=== PATIENT | female | born 1950 | race Caucasian/White ===

== ENCOUNTER → 2017-05-03 | Outpatient (CLI) | payer MEDICARE, MEDICAID | LOC: RAD 10:52 | PROVIDERS: ATTEND Internal Medicine Interventional Cardiology | DX: I25.10 Atherosclerotic heart disease of native coronary artery without angina pectoris (principal); R06.02 Shortness of breath; Z72.0 Tobacco use ==

== ENCOUNTER → 2017-06-06 | Outpatient (CLI) | payer MEDICARE, MEDICAID ==
[2017-06-06 13:08] LABS: BASOPHILS % (AUTO) 1 % (0-10); EOSINOPHILS # (AUTO) 0.3 10^3/uL (0.0-0.3); EOSINOPHILS % (AUTO) 4 % (0-10); LYMPHOCYTES # (AUTO) 1.4 X 10^3 (1.0-4.0); LYMPHOCYTES % (AUTO) 22 % (12-44); MEAN CORPUSCULAR HEMOGLOBIN 34 PG (25-34); MEAN CORPUSCULAR HGB CONC 35 G/DL (32-36); MEAN CORPUSCULAR VOLUME 97 FL (80-99); MEAN PLATELET VOLUME 7.9 FL (7.4-10.4); MONOCYTES # (AUTO) 0.5 X 10^3 (0.0-1.0); MONOCYTES % (AUTO) 7 % (0-12); NEUTROPHILS # (AUTO) 4.3 X 10^3 (1.8-7.8); NEUTROPHILS % (AUTO) 67 % (42-75); PLATELET COUNT 216 10^3/uL (130-400); RED BLOOD COUNT 3.68 10^6/uL (4.35-5.85); RED CELL DISTRIBUTION WIDTH 14.2 % (10.0-14.5); WHITE BLOOD COUNT 6.4 10^3/uL (4.3-11.0)
[2017-06-06 13:24] LABS: BILIRUBIN,URINE NEGATIVE (NEGATIVE); KETONES,URINE NEGATIVE (NEGATIVE); LEUKOCYTE ESTERASE ,URINE 3+ (NEGATIVE); NITRITE,URINE NEGATIVE (NEGATIVE); PH,URINE 5 (5-9); PROTEIN,URINE NEGATIVE (NEGATIVE); UROBILINOGEN,URINE NORMAL (NORMAL)
[2017-06-06 13:26] LABS: ANION GAP 9 MMOL/L (5-14); BLOOD UREA NITROGEN 21 MG/DL (7-18); BUN/CREATININE RATIO 23; CALCIUM 9.3 MG/DL (8.5-10.1); CARBON DIOXIDE 25 MMOL/L (21-32); CHLORIDE 97 MMOL/L (98-107); CREATININE SERUM 0.92 MG/DL (0.60-1.30); GFR ESTIMATED > 60; GLUCOSE 137 MG/DL (70-105); PHOSPHORUS 4.2 MG/DL (2.3-4.7); POTASSIUM 5.1 MMOL/L (3.6-5.0); SODIUM 131 MMOL/L (135-145)
[2017-06-06 13:29] LABS: BAND NEUTROPHILS 5 %; BASOPHILS % (MANUAL) 0 %; EOSINOPHILS % (MANUAL) 5 %; LYMPHOCYTES % (MANUAL) 30 %; NEUTROPHILS % (MANUAL) 55 %
[2017-06-06 13:30] LABS: ANISOCYTOSIS SLIGHT
[2017-06-06 13:36] LABS: HYALINE CASTS, URINE RARE /LPF
[2017-06-06 13:44] LABS: PROTEIN/CREATININE RATIO 0.13
== END ==
LOC: LAB 12:48
PROVIDERS: ATTEND Internal Medicine Interventional Cardiology
DX: E87.1 Hypo-osmolality and hyponatremia (principal); I25.10 Atherosclerotic heart disease of native coronary artery without angina pectoris; R06.02 Shortness of breath
CPT/HCPCS: 36415; 80069; 81000; 82570; 84156; 85007; 85027; 87088; 87186

== ENCOUNTER → 2017-06-21 | Outpatient (CLI) | payer MEDICARE, MEDICAID ==
[2017-06-21 15:43] LABS: ALBUMIN 4.1 GM/DL (3.2-4.5); ANION GAP 14 MMOL/L (5-14); BLOOD UREA NITROGEN 20 MG/DL (7-18); BUN/CREATININE RATIO 24; CALCIUM 9.5 MG/DL (8.5-10.1); CARBON DIOXIDE 20 MMOL/L (21-32); CHLORIDE 98 MMOL/L (98-107); CREATININE SERUM 0.84 MG/DL (0.60-1.30); GFR ESTIMATED > 60; GLUCOSE 161 MG/DL (70-105); PHOSPHORUS 3.9 MG/DL (2.3-4.7); POTASSIUM 4.4 MMOL/L (3.6-5.0); SODIUM 132 MMOL/L (135-145)
[2017-06-22 09:15] LABS: CALCIUM PARA THYROID HORMONE 9.4 mg/dL (8.5-10.5)
== END ==
LOC: LAB 14:45
PROVIDERS: ATTEND Internal Medicine Nephrology
DX: D64.89 Other specified anemias (principal); E87.5 Hyperkalemia; N39.0 Urinary tract infection, site not specified
CPT/HCPCS: 36415; 80069; 82088; 82306; 82533; 82570; 82728; 83540; 83550; 83930; 83935; 83970; 84300; 84443

== ENCOUNTER → 2017-07-06 | Outpatient (CLI) | payer MEDICARE, MEDICAID ==
[~2017-07-06] MED LIST: CATHETER FLUSH 10 ML SYR IV PRN; REGADENOSON 0.4 MG/5 ML SYR (LEXISCAN) IV ONE
[2017-07-06 09:59] VITALS: BP 131/64
[2017-07-06 10:12] VITALS: BP 157/83
--- NOTE | 2017-07-07 22:45 | STRESS TEST ---
DATE OF SERVICE: 07/06/2017 PHARMACOLOGICAL NUCLEAR STRESS TEST ATTENDING PHYSICIAN: Dr. Charisse Paez. PRIMARY PHYSICIAN: Dr. Cash Ulrich. FAMILY PHYSICIAN: Dr. Mariah Kingsley. DIAGNOSES: Coronary artery disease, shortness of breath, tobacco user. PROCEDURE DETAILS: The patient was brought to the stress lab after informed consent was taken. Lexiscan stress test was performed according to the protocol. A 0.4 mg of Lexiscan was given IV. Low-grade exercise was performed. Baseline ECG showed sinus rhythm at 66 BPM. Blood pressure was 157/83 mmHg. Maximum heart rate was 88 BPM and blood pressure was 157/83 mmHg. There were no [address]-T wave abnormalities noted during Lexiscan infusion. There was no chest pain and arrhythmias noted. Stress test was stopped secondary to completion of protocol. Review of the myocardial perfusion imaging was performed. 10.24 mCi of Myoview were given for stress images and 29.8 mCi of Myoview were given for stress images. TID was 1.13. Ejection fraction was 81%. Normal perfusion in both stress and rest. Normal wall motion. SSS 1, SRS zero, SDS 1. IMPRESSION AND CONCLUSION: 1. Pharmacological nuclear stress test was negative for ischemia. 2. Normal myocardial perfusion imaging on stress and rest. 3. Normal LV function. Job ID: [id number] DocumentID: [id number] Dictated Date: 07/06/2017 12:23:54 Cso Date: 07/06/2017 19:32:14 Dictated By: SATNAM PAEZ MD
== END ==
LOC: CARD 08:19
PROVIDERS: ATTEND Internal Medicine Interventional Cardiology
DX: I25.10 Atherosclerotic heart disease of native coronary artery without angina pectoris (principal); R06.02 Shortness of breath; Z72.0 Tobacco use
CPT/HCPCS: 78452; 93017

== ENCOUNTER → 2017-08-01 | Outpatient (CLI) | payer MEDICARE, MEDICAID ==
[2017-08-01 15:27] LABS: BASOPHILS % (AUTO) 0 % (0-10); EOSINOPHILS # (AUTO) 0.3 10^3/uL (0.0-0.3); EOSINOPHILS % (AUTO) 4 % (0-10); LYMPHOCYTES # (AUTO) 1.5 X 10^3 (1.0-4.0); LYMPHOCYTES % (AUTO) 23 % (12-44); MEAN CORPUSCULAR HEMOGLOBIN 34 PG (25-34); MEAN CORPUSCULAR HGB CONC 35 G/DL (32-36); MEAN CORPUSCULAR VOLUME 97 FL (80-99); MEAN PLATELET VOLUME 8.1 FL (7.4-10.4); MONOCYTES # (AUTO) 0.4 X 10^3 (0.0-1.0); MONOCYTES % (AUTO) 7 % (0-12); NEUTROPHILS # (AUTO) 4.4 X 10^3 (1.8-7.8); NEUTROPHILS % (AUTO) 66 % (42-75); PLATELET COUNT 236 10^3/uL (130-400); RED BLOOD COUNT 3.87 10^6/uL (4.35-5.85); RED CELL DISTRIBUTION WIDTH 14.2 % (10.0-14.5); WHITE BLOOD COUNT 6.6 10^3/uL (4.3-11.0)
[2017-08-01 15:33] LABS: BILIRUBIN,URINE NEGATIVE (NEGATIVE); KETONES,URINE NEGATIVE (NEGATIVE); LEUKOCYTE ESTERASE ,URINE 3+ (NEGATIVE); NITRITE,URINE NEGATIVE (NEGATIVE); PH,URINE 5 (5-9); PROTEIN,URINE 2+ (NEGATIVE); UROBILINOGEN,URINE NORMAL (NORMAL)
[2017-08-01 15:41] LABS: SQUAMOUS EPITHELIAL CELL,UR >50 /HPF; TRICHOMONAS,URINE FEW /HPF; WBC,URINE 25-50 /HPF
[2017-08-01 15:45] LABS: ALBUMIN 4.1 GM/DL (3.2-4.5); ANION GAP 11 MMOL/L (5-14); BLOOD UREA NITROGEN 18 MG/DL (7-18); BUN/CREATININE RATIO 23; CALCIUM 9.4 MG/DL (8.5-10.1); CARBON DIOXIDE 23 MMOL/L (21-32); CHLORIDE 93 MMOL/L (98-107); GFR ESTIMATED > 60; GLUCOSE 172 MG/DL (70-105); MAGNESIUM 1.8 MG/DL (1.8-2.4); PHOSPHORUS 3.4 MG/DL (2.3-4.7); SODIUM 127 MMOL/L (135-145); URIC ACID 8.5 MG/DL (2.6-7.2)
[2017-08-01 15:50] LABS: PROTEIN/CREATININE RATIO 0.27
[2017-08-02 08:07] LABS: FOLIC ACID 2.6 ng/mL (1.5-24.0)
== END ==
LOC: LAB 14:45
PROVIDERS: ATTEND Internal Medicine Nephrology
DX: E87.5 Hyperkalemia (principal); D64.89 Other specified anemias; N39.0 Urinary tract infection, site not specified
CPT/HCPCS: 36415; 80069; 81000; 82570; 82607; 82746; 83735; 83930; 83935; 84156; 84550; 85025; 87088; 87186

== ENCOUNTER → 2017-08-07 | Outpatient (CLI) | payer MEDICARE, MEDICAID ==
[2017-08-07 15:33] LABS: ANION GAP 9 MMOL/L (5-14); BLOOD UREA NITROGEN 12 MG/DL (7-18); BUN/CREATININE RATIO 16; CALCIUM 9.3 MG/DL (8.5-10.1); CARBON DIOXIDE 26 MMOL/L (21-32); CHLORIDE 93 MMOL/L (98-107); CREATININE SERUM 0.75 MG/DL (0.60-1.30); GFR ESTIMATED > 60; GLUCOSE 159 MG/DL (70-105); PHOSPHORUS 3.7 MG/DL (2.3-4.7); POTASSIUM 4.6 MMOL/L (3.6-5.0); SODIUM 128 MMOL/L (135-145)
== END ==
LOC: LAB 14:49
PROVIDERS: ATTEND Internal Medicine Nephrology
DX: E87.1 Hypo-osmolality and hyponatremia (principal); E87.5 Hyperkalemia; D64.89 Other specified anemias; N39.0 Urinary tract infection, site not specified
CPT/HCPCS: 36415; 80069

== ENCOUNTER → 2017-10-13 | Outpatient (CLI) | payer MEDICARE, MEDICAID ==
[2017-10-13 13:31] LABS: BASOPHILS % (AUTO) 1 % (0-10); EOSINOPHILS # (AUTO) 0.3 10^3/uL (0.0-0.3); EOSINOPHILS % (AUTO) 4 % (0-10); HEMATOCRIT 41 % (35-52); HEMOGLOBIN 14.2 G/DL (11.5-16.0); LYMPHOCYTES # (AUTO) 1.4 X 10^3 (1.0-4.0); LYMPHOCYTES % (AUTO) 24 % (12-44); MEAN CORPUSCULAR HEMOGLOBIN 35 PG (25-34); MEAN CORPUSCULAR HGB CONC 35 G/DL (32-36); MEAN CORPUSCULAR VOLUME 99 FL (80-99); MEAN PLATELET VOLUME 8.5 FL (7.4-10.4); MONOCYTES # (AUTO) 0.4 X 10^3 (0.0-1.0); MONOCYTES % (AUTO) 7 % (0-12); NEUTROPHILS # (AUTO) 3.9 X 10^3 (1.8-7.8); NEUTROPHILS % (AUTO) 65 % (42-75); PLATELET COUNT 225 10^3/uL (130-400); RED BLOOD COUNT 4.12 10^6/uL (4.35-5.85); RED CELL DISTRIBUTION WIDTH 14.8 % (10.0-14.5)
[2017-10-13 13:59] LABS: ALBUMIN 3.9 GM/DL (3.2-4.5); BUN/CREATININE RATIO 22; CALCIUM 9.8 MG/DL (8.5-10.1); CARBON DIOXIDE 29 MMOL/L (21-32); CHLORIDE 99 MMOL/L (98-107); CREATININE SERUM 0.78 MG/DL (0.60-1.30); GFR ESTIMATED > 60; GLUCOSE 170 MG/DL (70-105); MAGNESIUM 1.5 MG/DL (1.8-2.4); PHOSPHORUS 3.9 MG/DL (2.3-4.7); POTASSIUM 4.3 MMOL/L (3.6-5.0); SODIUM 138 MMOL/L (135-145)
[2017-10-13 14:07] LABS: BILIRUBIN,URINE NEGATIVE (NEGATIVE); CLARITY,URINE CLEAR; COLOR,URINE YELLOW; GLUCOSE, URINE (UA) NEGATIVE (NEGATIVE); KETONES,URINE NEGATIVE (NEGATIVE); LEUKOCYTE ESTERASE ,URINE 3+ (NEGATIVE); NITRITE,URINE NEGATIVE (NEGATIVE); PH,URINE 6 (5-9); PROTEIN,URINE 3+ (NEGATIVE); UROBILINOGEN,URINE NORMAL (NORMAL)
[2017-10-13 14:19] LABS: SODIUM URINE RANDOM 75 MMOL/L (50-200)
[2017-10-13 14:21] LABS: BACTERIA,URINE NEGATIVE /HPF; RBC,URINE 25-50 /HPF; TRICHOMONAS,URINE MODERATE /HPF; WBC,URINE 50-100 /HPF
== END ==
LOC: LAB 12:53
PROVIDERS: ATTEND Internal Medicine Nephrology
DX: E87.5 Hyperkalemia (principal); I10 Essential (primary) hypertension; E79.0 Hyperuricemia without signs of inflammatory arthritis and tophaceous disease; F17.200 Nicotine dependence, unspecified, uncomplicated; R82.90 Unspecified abnormal findings in urine
CPT/HCPCS: 36415; 80069; 81000; 82570; 83735; 83930; 83935; 83970; 84156; 84300; 84550; 85025; 87088

== ENCOUNTER → 2017-10-27 | Outpatient (CLI) | payer MEDICARE, MEDICAID ==
--- NOTE | 2017-10-27 16:26 | Diagnostic Imaging Report ---
INDICATION: Hyperkalemia. TECHNIQUE: Multi-projectional grayscale imaging of the kidneys and urinary bladder was performed. COMPARISON: None available. FINDINGS: Both kidneys are normal in size. The right kidney measures 10 cm in length and the left is 10 cm. The cortical thickness and the cortical medullary differentiation is well maintained. There is no evidence of calculi, concerning mass lesion or hydronephrosis. The urinary bladder is partially distended without intraluminal mass. The bilateral ureteral jets are not visualized, which may be due to absent peristalsis of the ureters during assessment. Incidental note of increased echogenicity of the liver, suggestive of hepatic steatosis. IMPRESSION: 1. No hydronephrosis or renal atrophy. 2. Incidental note of hepatic steatosis. Dictated by: Dictated on workstation # [id number]
== END ==
LOC: RAD 13:40
PROVIDERS: ATTEND Internal Medicine Nephrology
DX: E87.5 Hyperkalemia (principal)
CPT/HCPCS: 76770

== ENCOUNTER → 2019-06-26 | Outpatient (CLI) | payer MEDICARE, MEDICAID ==
--- NOTE | 2019-06-26 14:38 | Diagnostic Imaging Report ---
PROCEDURE: CT abdomen and pelvis without contrast. TECHNIQUE: Multiple contiguous axial images were obtained through the abdomen and pelvis without the use of intravenous contrast. Auto Exposure Controls were utilized during the CT exam to meet ALARA standards for radiation dose reduction. INDICATION: Right abdominal swelling. No prior studies are available for comparison. FINDINGS: The lung bases are clear. No discrete liver mass is detected. The gallbladder is unremarkable. No biliary ductal dilatation is seen. The pancreas and spleen are unremarkable. No adrenal mass is detected. The right kidney is unremarkable. There are several small 2-3 mm nonobstructing calculi within the left kidney. No hydronephrosis is seen. The aorta is heavily calcified but nonaneurysmal. The small and large bowel loops are normal caliber. There is moderate stool in the colon. No obstruction is seen. No inflammatory changes are identified. The bladder is decompressed. Uterus is unremarkable. There is no free fluid identified. No definite abdominal or pelvic lymphadenopathy is seen. Bony structures demonstrate degenerative changes in the lower lumbar spine. IMPRESSION: 1. Nonobstructing left-sided nephrolithiasis. 2. Moderate stool throughout the colon suggesting constipation. 3. No acute feature is identified. Dictated by: Dictated on workstation # [id number]
== END ==
LOC: RAD 14:10
PROVIDERS: ATTEND Nurse Practitioner Community Health
DX: N20.0 Calculus of kidney (principal); R19.03 Right lower quadrant abdominal swelling, mass and lump
CPT/HCPCS: 74176

== ENCOUNTER → 2019-07-09 | Outpatient (CLI) | payer MEDICARE, MEDICAID ==
--- NOTE | 2019-07-09 10:29 | Diagnostic Imaging Report ---
PROCEDURE: US abdomen complete. TECHNIQUE: Multiple real-time grayscale images were obtained over the abdomen in various projections. INDICATION: Right lower quadrant abdominal swelling. FINDINGS: The liver is normal in size at 16.9 cm. The portal vein is patent and shows normal direction of flow. No discrete liver mass is identified. The gallbladder does contain small calculi. No wall thickening or biliary ductal dilatation is identified. The pancreas is unremarkable. Spleen is normal in size at 10.5 cm. Proximal and mid abdominal aorta is normal caliber. Distal aorta was obscured by bowel gas. IVC is patent. Kidneys contain echogenic foci which may represent nonobstructing calculi. No hydronephrosis is seen. There is no ascites. IMPRESSION: 1. Cholelithiasis without evidence of acute cholecystitis. 2. Probable nonobstructing bilateral renal calculi. No hydronephrosis is detected. Dictated by: Dictated on workstation # [id number]
== END ==
LOC: RAD 08:44
PROVIDERS: ATTEND Nurse Practitioner Community Health
DX: K80.20 Calculus of gallbladder without cholecystitis without obstruction (principal)
CPT/HCPCS: 76700

== ENCOUNTER 2019-11-06 05:37 | Outpatient (CLI) | payer MEDICARE, MEDICAID ==
[~2019-11-06] VITALS: Ht 165.1 cm; Wt 63.6 kg
[2019-11-06] MEDS ORDERED: ASPI-586 PO (12:21)
[2019-11-06] MEDS ORDERED: ALPR0.5T7 PO (12:22)
[2019-11-06] MEDS ORDERED: VARE1TAB22 PO (12:22)
[2019-11-06] MEDS ORDERED: RT-ALBUINH INH (12:22)
[2019-11-06] MEDS ORDERED: ATOR20TA66 PO (12:22)
[2019-11-06] MEDS ORDERED: HYDR-3820 PO (12:22)
[2019-11-06] MEDS ORDERED: ISOS30TA3 PO (12:22)
== END 2019-11-06 12:29 | disposition home or self-care (01) ==
LOC: PREOP 05:37
PROVIDERS: ATTEND Specialist
DX: Z01.818 Encounter for other preprocedural examination (principal)

== ENCOUNTER 2019-11-08 09:19 | Day surgery (SDC) | payer MEDICARE, MEDICAID ==
[~2019-11-08] VITALS: Ht 165 cm; Wt 63.6 kg
[~2019-11-08 09:19] MED LIST changes: +ALPR0.5T7 PO; +ASPI-586 PO; +ATOR20TA66 PO; -CATHETER FLUSH 10 ML SYR IV PRN; +HYDR-3820 PO; +ISOS30TA3 PO; -REGADENOSON 0.4 MG/5 ML SYR (LEXISCAN) IV ONE; +RT-ALBUINH INH; +VARE1TAB22 PO
[2019-11-08 09:22] VITALS: BP 162/71
[2019-11-08] MEDS: TROPICAMIDE 1% OPH SOLN (MYDRIACYL) 15 ML BTL OU PRN ×2 (09:35→09:52)
[2019-11-08] MEDS: PHENYLEPHRINE 10% OPHTH (NEO-SYN) 5 ML BTL OU PRN ×2 (09:35→09:52)
[2019-11-08] MEDS: TETRACAINE 0.5% OPHTH SOLN 4 ML BTL (SINGLE DOSE ONLY) OU PRN ×2 (09:35→09:52)
--- NOTE | 2019-11-08 09:54 | Ophthalmologist Pre-Op Note ---
Pre-Operative Progress Note H&P Reviewed The H&P was reviewed, patient examined and no changes noted. Date H&P Reviewed: Nov 08, 2019 Time H&P Reviewed: 09:54 Pre-Op Dx Secondary Cataract, Right Eye OMEGA COHEN MD Nov 08, 2019 09:54
[2019-11-08 10:00] VITALS: BP 162/71
--- NOTE | 2019-11-08 10:03 | Ophthalmology Operative Report ---
YAG Capsulotomy PREOPERATIVE DIAGNOSIS: Secondary Cataract Left Eye POSTOPERATIVE DIAGNOSIS: Secondary Cataract Left Eye PROCEDURE: YAG Capsulotomy, left eye SURGEON: Ze Cohen ANESTHESIA: Topical anesthesia COMPLICATIONS: None ESTIMATED BLOOD LOSS: Minimal DESCRIPTION OF PROCEDURE: After proper informed consent was obtained, the patient's, a 69 female left eye received one drop of Tropicamide and one drop of Tetracaine. The patient was then placed at the YAG laser and using a power of [ 4.5] millijoules and [ 19] bursts were used to fashion a central capsulotomy. The patient tolerated the procedure well without complications. ZE COHEN MD Nov 08, 2019 10:03
== END 2019-11-08 10:00 | disposition home or self-care (01) ==
LOC: SDC 09:19
PROVIDERS: ATTEND Specialist
DX: H26.492 Other secondary cataract, left eye (principal); Z88.7 Allergy status to serum and vaccine; Z79.891 Long term (current) use of opiate analgesic; Z79.82 Long term (current) use of aspirin; Z79.899 Other long term (current) drug therapy; Z83.3 Family history of diabetes mellitus; Z83.518 Family history of other specified eye disorder

== ENCOUNTER 2019-11-29 10:50 | Outpatient (CLI) | payer MEDICARE, MEDICAID ==
[~2019-11-29] VITALS: Ht 165.1 cm; Wt 62.7 kg
[2019-11-29] MEDS ORDERED: OMG1KC PO (10:58)
[2019-11-29] MEDS ORDERED: LINA145C PO (10:58)
[2019-11-29] MEDS ORDERED: BACL20TA PO (10:58)
== END 2019-11-29 11:18 | disposition home or self-care (01) ==
LOC: PREOP 10:50
PROVIDERS: ATTEND Surgery
DX: Z01.818 Encounter for other preprocedural examination (principal)

== ENCOUNTER → 2019-12-10 | Outpatient (CLI) | payer MEDICARE, MEDICAID ==
[~2019-12-10] MED LIST changes: +BACL20TA PO; +LINA145C PO; +OMG1KC PO
--- NOTE | 2019-12-10 15:30 | Diagnostic Imaging Report ---
PROCEDURE: MR imaging cervical spine without contrast. TECHNIQUE: Multiplanar, multisequence MR imaging of the cervical spine was performed without contrast. INDICATION: Chronic neck pain. COMPARISON: Correlation is made with prior MRI of the cervical spine from 04/04/2014. FINDINGS: Curvature of the cervical spine is normal. Minimal anterolisthesis C3 on C4 is noted. Vertebral body marrow signal is normal. No marrow lesion is detected. There is some generalized disc desiccation compatible with degenerative disc disease. The cervical spinal cord demonstrates homogeneous signal intensity and normal morphology. Craniocervical junction is unremarkable. C2-C3: Central canal and neural foramina are widely patent. C3-C4: Broad-based disc/osteophyte complex indents the ventral thecal sac. Central canal is patent. Uncovertebral joint degenerative change does result in moderate bilateral neural foraminal narrowing. C4-C5: Endplate osteophytes indent the ventral thecal sac. There is moderate to significant right neural foraminal narrowing. Left neural foramen is patent. There is mild central canal narrowing. C5-C6: Broad-based disc/osteophyte complex indents the ventral thecal sac. This does result in mild central canal narrowing. Mild bilateral neural foraminal narrowing is noted. C6-C7: Broad-based disc/osteophyte complex produces mild central canal narrowing. No significant neural foraminal narrowing is seen. C7-T1: Central canal and neural foramina are widely patent. Paraspinous tissues are unremarkable. IMPRESSION: Generalized cervical spondylosis with mild central canal or neural foraminal narrowing described level by level above. Dictated by: Dictated on workstation # [id number]
== END ==
LOC: RAD 14:19
PROVIDERS: ATTEND Nurse Practitioner Community Health
DX: M47.812 Spondylosis without myelopathy or radiculopathy, cervical region (principal); M25.78 Osteophyte, vertebrae
CPT/HCPCS: 72141

== ENCOUNTER 2020-02-21 07:10 | Outpatient (RCR) | payer MEDICARE, MEDICAID ==
[~2020-02-21] VITALS: Ht 165 cm; Wt 68.6 kg
[~2020-02-21 07:10] MED LIST changes: +ACHYD1T PO; +DESV100T PO; -HYDR-3820 PO; +LISI2.5T PO; +METF-397 PO; +MIRT15TA PO
== END 2020-02-21 15:49 | disposition home or self-care (01) ==
LOC: PREOP 07:10
PROVIDERS: ATTEND Surgery
DX: Z01.818 Encounter for other preprocedural examination (principal); Z11.59 Encounter for screening for other viral diseases
CPT/HCPCS: 87635

== ENCOUNTER 2021-06-25 12:31 | Emergency (ER) | payer MEDICARE, MEDICAID ==
[~2021-06-25] VITALS: Ht 167 cm; Wt 45.3 kg
[~2021-06-25 12:31] MED LIST changes: -ISOS30TA3 PO; +ISOS30TA82 PO; +MIRT-96 PO; -MIRT15TA PO
[2021-06-25] MEDS ORDERED: ETOMIDATE IV SOLN 20 MG/10 ML VIAL IV ONE (12:34)
[2021-06-25] MEDS ORDERED: ROCURONIUM 10 MG/ML 5 ML SYRINGE IV ONE (12:34)
[2021-06-25] MEDS ORDERED: NS IV 1000 ML 1,000 ML IV SCH ×4 (12:45→16:00)
[2021-06-25] MEDS ORDERED: NALOXONE 2 MG/2 ML (NARCAN) SYR ONE (12:50)
[2021-06-25] MEDS ORDERED: NALOXONE 2 MG/2 ML (NARCAN) SYR IV ONE (13:00)
[2021-06-25 13:03] LABS: BASOPHILS % (AUTO) 0 % (0-10); EOSINOPHILS % (AUTO) 0 % (0-10); HEMATOCRIT 28 % (35-52); HEMOGLOBIN 8.8 g/dL (11.5-16.0); LYMPHOCYTES % (AUTO) 6 % (12-44); MEAN CORPUSCULAR HEMOGLOBIN 34 pg (25-34); MEAN CORPUSCULAR HGB CONC 32 g/dL (32-36); MEAN CORPUSCULAR VOLUME 107 fL (80-99); MEAN PLATELET VOLUME 9.1 fL (9.0-12.2); MONOCYTES # (AUTO) 0.9 10^3/uL (0.0-1.0); MONOCYTES % (AUTO) 5 % (0-12); NEUTROPHILS % (AUTO) 88 % (42-75); PLATELET COUNT 535 10^3/uL (130-400); WHITE BLOOD COUNT 15.9 10^3/uL (4.3-11.0)
[2021-06-25 13:04] LABS: CLARITY,URINE CLEAR; COLOR,URINE YELLOW; GLUCOSE, URINE (UA) NEGATIVE (NEGATIVE); KETONES,URINE TRACE (NEGATIVE); LEUKOCYTE ESTERASE ,URINE NEGATIVE (NEGATIVE); NITRITE,URINE NEGATIVE (NEGATIVE); PH,URINE 5.5 (5-9); PROTEIN,URINE 1+ (NEGATIVE)
[2021-06-25 13:26] LABS: AMPHETAMINE SCREEN, URINE NEGATIVE (NEGATIVE); BARBITURATE SCREEN URINE NEGATIVE (NEGATIVE); BENZODIAZEPINES SCREEN URINE NEGATIVE (NEGATIVE); CANNABINOID SCREEN, URINE POSITIVE (NEGATIVE); COCAINE SCREEN URINE NEGATIVE (NEGATIVE); METHADONE STAT NEGATIVE (NEGATIVE); METHAMPHETAMINE SCREEN URINE S NEGATIVE (NEGATIVE); OPIATE SCREEN URINE POSITIVE (NEGATIVE); OXYCODONE STAT NEGATIVE (NEGATIVE); PROPOXYPHENE STAT NEGATIVE (NEGATIVE); TRICYCLIC ANTIDEPRESSANTS SCRE NEGATIVE (NEGATIVE)
[2021-06-25 13:41] LABS: ERYTHROCYTE SEDIMENTATION RATE > 140 MM/HR (0-30)
[2021-06-25 13:45] LABS: ANISOCYTOSIS SLIGHT; BAND NEUTROPHILS 15 %; BASOPHILS % (MANUAL) 0 %; ELLIPT/OVALOCYTES SLIGHT; EOSINOPHILS % (MANUAL) 0 %; LYMPHOCYTES % (MANUAL) 8 %; MONOCYTES % (MANUAL) 5 %; NEUTROPHILS % (MANUAL) 72 %
[2021-06-25 13:47] LABS: BACTERIA,URINE NEGATIVE /HPF; BILIRUBIN,URINE 1+ (NEGATIVE); RBC,URINE RARE /HPF; SQUAMOUS EPITHELIAL CELL,UR 0-2 /HPF
--- NOTE | 2021-06-25 13:48 | Diagnostic Imaging Report ---
PROCEDURE: CT head and CT cervical spine without contrast. TECHNIQUE: Multiple contiguous axial images were obtained through the brain and cervical spine without the use of intravenous contrast. Sagittal and coronal reformations through the cervical spine were then performed. Auto Exposure Controls were utilized during the CT exam to meet ALARA standards for radiation dose reduction. INDICATION: Trauma, fall, and unresponsive. COMPARISON: No prior studies are available for comparison. CT HEAD: The ventricles and sulci are within normal limits. No sulcal effacement or midline shift is identified. No acute intra-axial or extra-axial hemorrhage is detected. There is some mild periventricular hypodensity consistent with chronic microvascular ischemia. Cisterns are patent. Visualized paranasal sinuses demonstrate a mucus retention cyst or polyp in the left maxillary sinus. IMPRESSION: No acute intracranial process is detected. CT CERVICAL SPINE: Alignment of the cervical spine is normal. There is multilevel degenerative disc disease, greatest at the C6-C7 level with disc space narrowing and marginal spurring. There is multilevel facet arthropathy. No fractures are identified. Prevertebral tissues are within normal limits. Odontoid appears intact. IMPRESSION: Cervical spondylosis. No acute bony abnormality is detected. Dictated by: Dictated on workstation # [id number]
--- NOTE | 2021-06-25 13:55 | Diagnostic Imaging Report ---
PROCEDURE: CT chest, abdomen, and pelvis without contrast. TECHNIQUE: Multiple contiguous axial images were obtained through the chest, abdomen, and pelvis without the use of intravenous contrast. Auto Exposure Controls were utilized during the CT exam to meet ALARA standards for radiation dose reduction. INDICATION: Trauma and unresponsive. COMPARISON: Comparison is made with prior CT abdomen and pelvis study from 06/26/2019. CT CHEST: No mediastinal hematoma is seen. There is no pleural effusion or hemothorax identified. Parenchymal evaluation does show significant centrilobular emphysematous changes throughout both lungs. No pneumothorax is seen. There is no pulmonary contusion or mass. Bony structures are unremarkable. IMPRESSION: 1. Centrilobular emphysematous changes. No acute feature in the chest is identified. CT ABDOMEN AND PELVIS: The liver is unremarkable. Gallbladder contains small stones. There is no biliary ductal dilatation. The pancreas and spleen are unremarkable. No adrenal mass is detected. There are small nonobstructing calculi in the upper pole of left kidney. There is no hydronephrosis. Aorta is heavily calcified but nonaneurysmal. The bowel loops are normal in caliber. Emery decompresses the urinary bladder. Uterus is unremarkable. There is no free fluid or fluid collection. The bony structures are nonacute. IMPRESSION: No evidence of abdominal or pelvic visceral injury. No acute feature is detected. Dictated by: Dictated on workstation # [id number]
[2021-06-25 14:06] LABS: CHLORIDE 115 MMOL/L (98-107)
[2021-06-25 14:07] LABS: ALBUMIN 2.8 GM/DL (3.2-4.5); SODIUM 136 MMOL/L (135-145)
[2021-06-25 14:08] LABS: CALCIUM 7.3 MG/DL (8.5-10.1); POTASSIUM 7.7 MMOL/L (3.6-5.0)
[2021-06-25 14:09] LABS: AMYLASE 158 U/L (25-125); GLUCOSE 191 MG/DL (70-105)
[2021-06-25 14:10] LABS: TOTAL PROTEIN 5.8 GM/DL (6.4-8.2)
[2021-06-25 14:11] LABS: BILIRUBIN,TOTAL 0.4 MG/DL (0.1-1.0)
[2021-06-25] MEDS ORDERED: RT-ALBUTEROL SULF 2.5 MG/3 ML PRE-MIX VIAL INH STA (14:12)
[2021-06-25 14:13] LABS: ALKALINE PHOSPHATASE 68 U/L (40-136); GFR ESTIMATED 21
[2021-06-25 14:14] LABS: BUN/CREATININE RATIO 39
[2021-06-25] MEDS ORDERED: DEXTROSE 50% 50 ML (IMS) SYR IV ONE (14:15)
[2021-06-25] MEDS ORDERED: inSUlin (REGULAR) HUMAN 1 UNIT/0.01 ML (CHARGE PER UNIT) IV ONE (14:15)
[2021-06-25] MEDS ORDERED: SOD POLYSTERENE 15 GM/60 ML (KAYEXALATE) UNIT DOSE NG ONE (14:15)
[2021-06-25] MEDS ORDERED: CALCIUM CHLORIDE 1 GM/10 ML (IMS) SYR INJ ONE (14:15)
[2021-06-25 14:16] LABS: ACETAMINOPHEN < 10 UG/ML (10-30); ALANINE AMINOTRANSFERASE 91 U/L (0-55)
[2021-06-25 14:17] LABS: LIPASE 28 U/L (8-78)
[2021-06-25 14:17] LABS: FIBRIN DEGRADATION PRODUCTS >= 20.00 UG/ML (0.00-0.49); INR 1.4 (0.8-1.4); PARTIAL THROMBOPLASTIN TIME 31 SEC (24-35); PROTHROMBIN TIME PATIENT 17.4 SEC (12.2-14.7)
[2021-06-25] MEDS ORDERED: HEParin 1000 UNIT/ML (10ML VIAL) FOR BOLUS IV ONE (14:17)
--- NOTE | 2021-06-25 14:17 | ED General ---
General Chief Complaint: Altered Mental Status Stated Complaint: STEMI Nursing Triage Note: Patient brought from home via [facility] with c/o multiple falls, altered mental status and possible Stemi and stroke. Patient lives at home alone. She had fallen on Monday, and this AM at 0900 AM. Neighbors found her this morning and picked her up and set her on the toilet. They checked back on the patient at 12:00 today and found patient still in the same place they had left her. Pt is not speaking or following commands. Skin is purple and mottled and cold to touch. Patient has eyes open and looking around but does not speak or respond. (HENRIETTA PERSAUD APRN) Source of Information: EMS, Other (ALL PAST MEDICAL HISTORY IS FROM INFORMATION FAXED FROM [facility]) Exam Limitations: Other (PT SEMI-OBTUNDED AND UNABLE TO PROVIDE ANY SIGNIFICANT INFORMATION AND NO FAMILY HERE ON ARRIVAL) (MAGALIE WILSON DO) History of Present Illness Date Seen by Provider: Jun 25, 2021 Time Seen by Provider: 12:32 Initial Comments PT ARRIVES VIA EMS FROM HOME ALL INFORMATION IS FROM EMS EMS WAS CALLED BY NEIGHBOR NEIGHBOR REPORTED THAT PT WAS SHORT OF BREATH ALL DAY YESTERDAY, AND AGITATED AND RESTLESS ALL DAY AT 2200 LAST NIGHT, NEIGHBOR "THOUGHT SHE WAS BETTER" THIS AM, NEIGHBOR CHECKED ON HER AND FOUND HER ON THE BATHROOM FLOOR, SO THEY SAT HER ON THE TOILET AND LEFT THEY WENT BACK TO CHECK ON HER A FEW HOURS LATER AND PT WAS STILL ON THE TOILET, SO THEY CALLED EMS EMS REPORT THAT PT HAS ST ELEVATION ON EKG/STEMI, AND ALSO CONCERNED THAT SHE MIGHT BE HAVING A STROKE WITH ALTERED MENTAL STATUS EMS NOT THAT PT WAS CYANOTIC AND THEY WERE UNABLE TO OBTAIN O2 SAT, AND PLACED ON PT ON CPAP PT ALSO TOO COLD FOR EMS TO OBTAIN A TEMP PT IN SEVERE DISTRESS ON ARRIVAL PT IS SEVERELY CYANOTIC, ESPECIALLY MOTTLED TO FACE, BREASTS, ABDOMEN SEMI-ALERT--DOES OPEN EYES, WHEN ASKED IF SHE HAD CHEST PAIN, SHE NODDED HEAD YES, AND ALSO NODDED HEAD YES WHEN ASKED IF SHE FELT SHORT OF BREATH. UNABLE TO OBTAIN ANY OTHER INFORMATION FROM PT. UNABLE TO REGISTER O2 SAT ON ARRIVAL RECTAL TEMP ON ARRIVAL IS 28.8 C. CALLED [facility], AND THEY REPORT PT WAS SEEN AT [facility] ON 06/22/21 FOR CHRONIC BACK PAIN, AND RECENT LEFT ANKLE SPRAIN O2 SAT WAS 98% ON ROOM AIR AT THAT TIME, AND PT WAS NOT HAVING ANY CARDIAC OR RESPIRATORY COMPLAINTS. PT TAKES HYDROCODONE AND BACLOFEN THEY REPORT THAT PT SELF MEDICATES WITH MARIJUANA. PT IS FORMER SMOKER, WITH HISTORY OF COPD. PT WITH HISTORY OF CARDIAC STENT IN 2001 THEY DO NOT HAVE ANY ADVANCE DIRECTIVES ON FILE. PT WITH NO PRIOR VISITS HERE, OTHER THAN OUTPATIENT CATARACT SURGERY, AND REMOVAL OF A SKIN LESION PCP: [facility] (MAGALIE WILSON DO) Allergies and Home Medications Allergies Coded Allergies: tetanus and diphtheria toxoids (Verified Allergy, Mild, Rash, 02/20/20) Penicillins (Verified Allergy, Unknown, 06/25/21) Patient Home Medication List Home Medication List Reviewed: Yes (HENRIETTA PERSAUD APRN) Albuterol Sulfate (Ventolin Hfa) 1 Puff Puff, 2 PUFF INH Q4H PRN for WHEEZING, (Reported) Entered as Reported by: JUAN FRANCISCO BILL on 11/06/19 1222 Alprazolam (Alprazolam) 0.5 Mg Tablet, 0.5 MG PO DAILY PRN for ANXIETY, (Reported) Entered as Reported by: JUAN FRANCISCO BILL on 11/06/19 1222 Aspirin (Aspir 81) 81 Mg Tablet.dr, 81 MG PO DAILY, (Reported) Entered as Reported by: JUAN FRANCISCO BILL on 11/06/19 1221 Atorvastatin Calcium (Atorvastatin Calcium) 20 Mg Tablet, 20 MG PO DAILY, (Reported) Entered as Reported by: JUAN FRANCISCO BILL on 11/06/19 1222 Baclofen (Baclofen) 20 Mg Tablet, 20 MG PO TID PRN for MUSCLE SPASMS, (Reported) Entered as Reported by: JUAN FRANCISCO BILL on 11/29/19 1058 Desvenlafaxine Succinate (Pristiq ER) 100 Mg Tab.er.24h, 100 MG PO DAILY, (Reported) Entered as Reported by: EUGENIE JIMENEZ on 02/20/20 1057 Hydrocodone Bit/Acetaminophen (HYDROcodone/APAP 10/325 TABLET) 1 Each Tablet, 1 TAB PO TID PRN for PAIN-MODERATE, (Reported) Entered as Reported by: JUAN FRANCISCO BILL on 11/06/19 1222 Isosorbide Mononitrate (Isosorbide Mononitrate ER) 30 Mg Tab.er.24h, 15 MG PO DAILY, (Reported) Entered as Reported by: JUAN FRANCISCO BILL on 11/06/19 1222 Linaclotide (Linzess) 145 Mcg Capsule, 145 MCG PO DAILY PRN for CONSTIPATION-1ST LINE, (Reported) Entered as Reported by: JUAN FRANCISCO BILL on 11/29/19 1058 Lisinopril (Lisinopril) 2.5 Mg Tablet, 2.5 MG PO DAILY, (Reported) Entered as Reported by: EUGENIE JIMENEZ on 02/20/20 1057 Metformin HCl (Metformin HCl) 500 Mg Tablet, 500 MG PO BID, (Reported) Entered as Reported by: EUGENIE JIMENEZ on 02/20/20 1057 Mirtazapine (Remeron) 15 Mg Tablet, 15 MG PO DAILY, (Reported) Entered as Reported by: EUGENIE JIMENEZ on 02/20/20 1057 [place] 3 Polyunsat Fatty Acids (Fish Oil 1,000 mg Capsule) 1,000 Mg Cap, 1,000 MG PO DAILY, (Reported) Entered as Reported by: JUAN FRANCISCO BILL on 11/29/19 1058 Varenicline Tartrate (Chantix) 1 Mg Tablet, 1 MG PO BID, (Reported) Entered as Reported by: JUAN FRANCISCO BILL on 11/06/19 1222 Review of Systems Review of Systems Constitutional: other (MINIMAL INFORMATION FROM PT) Respiratory: short of breath Cardiovascular: chest pain (MAGALIE WILSON DO) Past Dspgtvz-Kkmqwd-Binozz Hx Patient Social History Tobacco Use?: Yes Tobacco type used: Cigarettes Smoking Status: Former Smoker Substance use?: Yes Substance type: Marijuana (MAGALIE WILSON DO) Seasonal Allergies Seasonal Allergies: Yes (HENRIETTA PERSAUD APRN) Past Medical History Surgeries: Yes (KIDNEY STONE, I&D BREAST ABSCESS, CATARACT) Coronary Stent Respiratory: Yes COPD Cardiac: Yes ([place] 2003) Coronary Artery Disease, Heart Attack, High Cholesterol, Hypertension Neurological: No Sexually Transmitted Disease: No HIV/AIDS: No Genitourinary: No Gastrointestinal: Yes Chronic Constipation Musculoskeletal: Yes Arthritis, Chronic Back Pain Endocrine: Yes (JUST STARTED 02/17/20) Diabetes, Non-Insulin dep HEENT: Yes (READING GLASSES, DENTURES) Loss of Vision: Denies Hearing Impairment: Denies Cancer: Yes (EAR) Skin Did You Recieve Any Treatments: Yes What Type of Treatment Did You: Surgical Intervention Psychosocial: Yes Anxiety Integumentary: Yes Eczema Blood Disorders: No Adverse Reaction/Blood Tranf: No (N/A) (HENRIETTA PERSAUD APRN) Surgery/Hospitalization HX: CATARACT SURGERY RIGHT EAR SQUAMOOUS CELL CARCINOMA 2019 CARDIAC CATH WITH STENT 2001 Surgeries: Yes Cardiac, Coronary Stent, Ear Surgery, Eye Surgery Respiratory: Yes COPD Cardiac: Yes (STENT 2001) Coronary Artery Disease, Heart Attack, High Cholesterol, Hypertension Musculoskeletal: Yes (CHRONIC PAIN ) Chronic Back Pain Endocrine: Yes Diabetes, Non-Insulin dep Psychosocial: Yes Sleep Difficulties, Anxiety, Depression (MAGALIE WILSON DO) Physical Exam Vital Signs Vital Signs - First Documented 06/25/21 06/25/21 12:31 14:42 Temp 28.8 Pulse 67 Resp 18 B/P (MAP) 71/55 (60) Pulse Ox 67 O2 Delivery NIV CPAP O2 Flow Rate 15.00 FiO2 100 (MAGALIE WILSON DO) Vital Signs Capillary Refill : Greater Than 3 Seconds (HENRIETTA PERSAUD APRN) Height, Weight, BMI Height: '" Weight: lbs. oz. kg; 16.00 BMI Method: (HENRIETTA PERSAUD APRN) General Appearance: Severe Distress, Other (SEMI-OBTUNDED; LETHARGIC/MINIMALLY RESPONSIVE; VERY SHALLOW BREATHING) Respiratory: Other (DECREASED AERATION IN ALL LUNG ALBERT, ON CPAP ON ARRIVAL. ) Cardiovascular: Regular Rate, Rhythm, No Edema, No Murmur Gastrointestinal: Soft Extremity: No Pedal Edema Neurologic/Psychiatric: Other (SEMI-OBTUNDED. PT NOT TALKING, BUT DID NOD HEAD YES/NO TO A COUPLE OF QUESTIONS. NO FURTHER NEURO EVALUATION IS POSSIBLE AT THIS TIME. ) Skin: Cool, Cyanosis, Mottled, Pallor; No Petechia (MAGALIE WILSON DO) Focused Exam Lactate Level 06/25/21 12:43: Lactic Acid Level 3.46*H (MAGALIE WILSON DO) Lactic Acid Level Laboratory Tests Test 06/25/21 12:43 Lactic Acid Level 3.46 MMOL/L (0.50-2.00) *H (MAGALIE WILSON DO) Procedures/Interventions Lumen: triple Central Line Procedure: betadine prep, sterile drapes applied, sterile dressing applied Position: internal jugular (R) Anesthesia: local Volume Anesthetic (ccs): 5 Complications: none Post Position: sutured, good blood return, position confirmed w/ CXR (HENRIETTA PERSAUD APRN) Date of ETT Placement: Jun 25, 2021 Time of ETT Placement: 13:40 Intubation Method: orotracheal Tube Size: 7.5 Medications: Etomidate, Rocuronium Positive End Tide CO2: Yes Breath Sounds after Intubation: bilateral-equal Intubation Complications: no complications Post Intubation Xray: Yes (HENRIETTA PERSAUD APRN) Progress/Results/Core Measures Suspected Sepsis SIRS Temperature: Pulse: 67 Respiratory Rate: 18 Laboratory Tests 06/25/21 12:43: White Blood Count 15.9H Blood Pressure 71 /55 Mean: 60 06/25/21 12:43: Lactic Acid Level 3.46*H Laboratory Tests 06/25/21 12:43: Platelet Count 535H 06/25/21 13:39: INR Comment 1.4 06/25/21 13:47: Creatinine 2.30H, Total Bilirubin 0.4 (HENRIETTA PERSAUD APRN) Results/Orders Lab Results Laboratory Tests Test 06/25/21 12:41 06/25/21 12:43 06/25/21 13:15 06/25/21 13:39 Range/Units Glucometer 214 H 70-110 MG/DL White Blood Count 15.9 H 4.3-11.0 10^3/uL Red Blood Count 2.60 L 3.80-5.11 10^6/uL Hemoglobin 8.8 L 11.5-16.0 g/dL Hematocrit 28 L 35-52 % Mean Corpuscular Volume 107 H 80-99 fL Mean Corpuscular Hemoglobin 34 25-34 pg Mean Corpuscular Hemoglobin Concent 32 32-36 g/dL Red Cell Distribution Width 14.9 H 10.0-14.5 % Platelet Count 535 H 130-400 10^3/uL Mean Platelet Volume 9.1 9.0-12.2 fL Immature Granulocyte % (Auto) 1 % Neutrophils (%) (Auto) 88 H 42-75 % Lymphocytes (%) (Auto) 6 L 12-44 % Monocytes (%) (Auto) 5 0-12 % Eosinophils (%) (Auto) 0 0-10 % Basophils (%) (Auto) 0 0-10 % Neutrophils # (Auto) 14.0 H 1.8-7.8 10^3/uL Lymphocytes # (Auto) 1.0 1.0-4.0 10^3/uL Monocytes # (Auto) 0.9 0.0-1.0 10^3/uL Eosinophils # (Auto) 0.0 0.0-0.3 10^3/uL Basophils # (Auto) 0.0 0.0-0.1 10^3/uL Immature Granulocyte # (Auto) 0.1 0.0-0.1 10^3/uL Neutrophils % (Manual) 72 % Lymphocytes % (Manual) 8 % Monocytes % (Manual) 5 % Eosinophils % (Manual) 0 % Basophils % (Manual) 0 % Band Neutrophils 15 % Anisocytosis SLIGHT Macrocytosis SLIGHT Elliptocytes SLIGHT Erythrocyte Sedimentation Rate > 140 H 0-30 MM/HR Urine Color YELLOW Urine Clarity CLEAR Urine pH 5.5 5-9 Urine Specific [place] >=1.030 1.016-1.022 Urine Protein 1+ H NEGATIVE Urine Glucose (UA) NEGATIVE NEGATIVE Urine Ketones TRACE H NEGATIVE Urine Nitrite NEGATIVE NEGATIVE Urine Bilirubin 1+ H NEGATIVE Urine Urobilinogen 0.2 < = 1.0 MG/DL Urine Leukocyte Esterase NEGATIVE NEGATIVE Urine RBC (Auto) 3+ H NEGATIVE Urine RBC RARE /HPF Urine WBC NONE /HPF Urine Squamous Epithelial Cells 0-2 /HPF Urine Crystals NONE /LPF Urine Bacteria NEGATIVE /HPF Urine Casts NONE /LPF Urine Mucus NEGATIVE /LPF Urine Culture Indicated NO Lactic Acid Level 3.46 *H 0.50-2.00 MMOL/L B-Type Natriuretic Peptide 692.2 H <100.0 PG/ML Urine Opiates Screen POSITIVE H NEGATIVE Urine Oxycodone Screen NEGATIVE NEGATIVE Urine Methadone Screen NEGATIVE NEGATIVE Urine Propoxyphene Screen NEGATIVE NEGATIVE Urine Barbiturates Screen NEGATIVE NEGATIVE Ur Tricyclic Antidepressants Screen NEGATIVE NEGATIVE Urine Phencyclidine Screen NEGATIVE NEGATIVE Urine Amphetamines Screen NEGATIVE NEGATIVE Urine Methamphetamines Screen NEGATIVE NEGATIVE Urine Benzodiazepines Screen NEGATIVE NEGATIVE Urine Cocaine Screen NEGATIVE NEGATIVE Urine Cannabinoids Screen POSITIVE H NEGATIVE SARS-CoV-2 RNA (RT-PCR) Not Detected Not Detecte Prothrombin Time 17.4 H 12.2-14.7 SEC INR Comment 1.4 0.8-1.4 Activated Partial Thromboplast Time 31 24-35 SEC D-Dimer >= 20.00 H 0.00-0.49 UG/ML Test 06/25/21 13:47 06/25/21 14:11 Range/Units Sodium Level 136 135-145 MMOL/L Potassium Level 7.7 *H 3.6-5.0 MMOL/L Chloride Level 115 H 98-107 MMOL/L Carbon Dioxide Level 9 *L 21-32 MMOL/L Anion Gap 12 5-14 MMOL/L Blood Urea Nitrogen 90 H 7-18 MG/DL Creatinine 2.30 H 0.60-1.30 MG/DL Estimat Glomerular Filtration Rate 21 BUN/Creatinine Ratio 39 Glucose Level 191 H 70-105 MG/DL Calcium Level 7.3 L 8.5-10.1 MG/DL Corrected Calcium 8.3 L 8.5-10.1 MG/DL Magnesium Level 2.0 1.6-2.4 MG/DL Total Bilirubin 0.4 0.1-1.0 MG/DL Aspartate Amino Transf (AST/SGOT) 267 H 5-34 U/L Alanine Aminotransferase (ALT/SGPT) 91 H 0-55 U/L Alkaline Phosphatase 68 40-136 U/L Total Creatine Kinase 45271 H 29-168 U/L Creatine Kinase MB 202.6 *H <6.6 NG/ML Myoglobin 14350.0 H 10.0-92.0 NG/ML Troponin I 6.707 *H <0.028 NG/ML C-Reactive Protein High Sensitivity 14.29 H 0.00-0.50 MG/DL Total Protein 5.8 L 6.4-8.2 GM/DL Albumin 2.8 L 3.2-4.5 GM/DL Amylase Level 158 H 25-125 U/L Lipase 28 8-78 U/L TSH [place] Testing 0.43 0.35-4.94 UIU/ML Acetaminophen Level < 10 L 10-30 UG/ML Serum Alcohol < 10 <10 MG/DL Blood Gas Puncture Site LEFT RADIAL Blood Gas Patient Temperature 34 Arterial Blood pH 7.07 *L 7.37-7.43 Arterial Blood Partial Pressure CO2 28 L 35-45 MMHG Arterial Blood Partial Pressure O2 375 H 79-93 MMHG Arterial Blood HCO3 8 *L 23-27 MMOL/L Arterial Blood Total CO2 9.2 *L 21.0-31.0 MMOL/L Arterial Blood Oxygen Saturation 100 94-100 % Arterial Blood Base Excess -20.4 L -2.5-2.5 MMOL/L Kian Test POSITIVE Blood Gas Ventilator Setting YES Blood Gas Inspired Oxygen 100% (MAGALIE WILSON DO) Micro Results Microbiology 06/25/21 Blood Culture - Preliminary, Resulted No growth (MAGALIE WILSON DO) My Orders Orders - MAGALIE WILSON DO Accucheck Stat ONCE (06/25/21 12:39) Ed Iv/Invasive Line Start (06/25/21 12:39) Ekg Tracing (06/25/21 12:39) Catheter(Urinary) Insert & Ass 03,15 (06/25/21 12:39) O2 (06/25/21 12:39) Monitor-Rhythm Ecg Trace Only (06/25/21 12:39) Ct Head/Cervical Spine Wo (06/25/21 12:39) Chest 1 View, Ap/Pa Only (06/25/21 12:39) Pelvis (06/25/21 12:39) BNP (06/25/21 12:39) Cbc With Automated Diff (06/25/21 12:39) Fibrin Degradation Products (06/25/21 12:39) Lactic Acid Analyzer (06/25/21 12:39) Protime With Inr (06/25/21 12:39) Partial Thromboplastin Time (06/25/21 12:39) Ua Culture If Indicated (06/25/21 12:39) Erythrocyte Sedimentation Rate (06/25/21 12:39) Ed Iv/Invasive Line Start (06/25/21 12:39) Ns Iv 1000 Ml (Sodium Chloride 0.9%) (06/25/21 12:45) Drug Screen Stat (Urine) (06/25/21 12:42) Ct Chest/Abdomen/Pelvis Wo (06/25/21 12:42) Naloxone Injection (Narcan Injection) (06/25/21 13:00) Naloxone Injection (Narcan Injection) (06/25/21 12:50) Manual Differential (06/25/21 12:43) Ed Iv/Invasive Line Start (06/25/21 13:30) Ns Iv 1000 Ml (Sodium Chloride 0.9%) (06/25/21 13:30) Covid 19 Inhouse Test (06/25/21 13:30) Isolation Central Supply Req (06/25/21 13:30) Arterial Blood Gas (06/25/21 13:30) Acetaminophen (06/25/21 13:33) Alcohol (06/25/21 13:33) Amylase (06/25/21 13:33) Creatine Kinase (06/25/21 13:33) Creatine Kinase Mb (06/25/21 13:33) Comprehensive Metabolic Panel (06/25/21 13:33) Hs C Reactive Protein (06/25/21 13:33) Lipase (06/25/21 13:33) Magnesium (06/25/21 13:33) Myoglobin Serum (06/25/21 13:33) Thyroid Analyzer (06/25/21 13:33) Troponin I (06/25/21 13:33) Ng Tube Insert & Assessment (06/25/21 13:46) Ekg Tracing (06/25/21 14:00) D50w (Emergency) Syringe (Dextrose 50% 5 (06/25/21 14:15) Insulin (Regular) Human (Novolin R (Per (06/25/21 14:15) Calcium Chloride 10% Injection (Calcium (06/25/21 14:15) Sodium Polystyrene Sulfonate (Kayexalate (06/25/21 14:15) Albuterol Pre-Mix Nebs (Rt) (Proventil (06/25/21 14:12) Rt Request For Service (06/25/21 14:12) Svn Small Volume Nebulizer (06/25/21 14:12) Ed Iv/Invasive Line Start (06/25/21 14:17) Ns Iv 1000 Ml (Sodium Chloride 0.9%) (06/25/21 14:30) Heparin Drip 82814 Unit/500ml (Heparin (06/25/21 14:30) Heparin (Bolus Per Protocol) (Heparin (B (06/25/21 14:17) Aspirin Chewable Tablet (Baby Aspirin Ch (06/25/21 14:30) Albuterol Pre-Mix Nebs (Rt) (Proventil (06/25/21 14:24) Sodium Bicarbonate 8.4% Vial (Sodium Bic (06/25/21 14:45) Insulin (Regular) Human (Novolin R (Per (06/25/21 14:49) Aspirin Chewable Tablet (Baby Aspirin Ch (06/25/21 14:49) D50w (Emergency) Syringe (Dextrose 50% 5 (06/25/21 14:50) Sodium Polystyrene Sulfonate (Kayexalate (06/25/21 14:50) Sodium Bicarbonate 8.4% Syr (Sodium Bica (06/25/21 14:50) Ns Iv 1000 Ml (Sodium Chloride 0.9%) (06/25/21 14:50) Heparin Drip 94859 Unit/500ml (Heparin (06/25/21 14:50) Sodium Bicarbonate 8.4% Syr (Sodium Bica (06/25/21 15:13) Arterial Blood Gas (06/25/21 15:27) Ed Iv/Invasive Line Start (06/25/21 15:58) Ns Iv 1000 Ml (Sodium Chloride 0.9%) (06/25/21 16:00) Norepinephrine 8 Mg/250 Ml (Norepinephri (06/25/21 16:45) Norepinephrine 8 Mg/250 Ml (Norepinephri (06/25/21 16:32) Blood Culture (06/25/21 12:43) Etomidate Injection (Amidate Injection) (06/25/21 12:34) Rocuronium 5 Ml Syringe (Rocuronium 5 Ml (06/25/21 12:34) (MAGALIE WILSON DO) Vital Signs/I&O 06/25/21 06/25/21 06/25/21 06/25/21 12:31 12:52 14:42 15:48 Temp 28.8 34.8 Pulse 67 101 105 Resp 18 15 15 B/P (MAP) 71/55 (60) 95/46 Pulse Ox 67 100 O2 Delivery NIV CPAP NIV CPAP Mechanical Ventilator O2 Flow Rate 15.00 10.00 100.00 FiO2 100 06/25/21 06/25/21 16:39 16:40 Temp 34.8 Pulse 101 101 Resp 15 B/P (MAP) 79/39 79/39 Pulse Ox 100 O2 Delivery Mechanical Ventilator O2 Flow Rate 100.00 (MAGALIE WILSON DO) Vital Signs/I&O Capillary Refill : Greater Than 3 Seconds (HENRIETTA PERSAUD APRN) Blood Pressure Mean: 60 Point of Care Testing Finger Stick Blood Glucose: 214 (HENRIETTA PERSAUD APRN) Progress Note : Progress Note CPAP CONTINUED ON ARRIVAL GIVEN NARCAN WITH SOME IMPROVEMENT IN MENTATION--SLIGHTLY MORE ALERT, AND NOW KEEPS EYES OPEN FOR SHORT PERIODS OF TIME, AND PT MOVING ALL EXTREMITIES, BUT NOT REALLY TALKING OR FOLLOWING COMMANDS, AND PT REMAINS CYANOTIC AND MOTTLED EKG SHOWS STEMI--MOM[facility] TEACHER CONTACTED. HE ADVISES THAT PT NEEDS CT SCANS BEFORE SHE CAN GO TO AUTOMATION/CONTROLS MANAGER WITH HISTORY OF BEING FOUND ON FLOOR TO RULE OUT ANY INTERNAL BLEEDING OR INJURY. (MAGALIE WILSON DO) ECG Initial ECG Impression Date: Jun 25, 2021 Initial ECG Impression Time: 12:34 Initial ECG Rate: 57 Initial ECG Rhythm: Normal Sinus Initial ECG Impression: Acute MN (ANTERIOR-LATERAL STEMI) Initial ECG Comparisson: No Previous ECG Available EKG : EKG Time: 14:11 Rate: 100 Rhythm: S.Tach ECG Impression: Acute MN (ANTERIOR/LATERAL STEMI) (MAGALIE WILSON DO) Diagnostic Imaging Comments ALL PER RADIOLOGIST REPORTS AT 1358 CXR-- FINDINGS: Heart size and pulmonary vasculature are normal. Coarse background interstitial markings throughout the lungs compatible with chronic lung disease or emphysema. No pleural effusion or pneumothorax. The osseous structures are intact. Endotracheal tube is present above the eric. An enteric catheter is present but the tip is not well visualized. A right IJ central line is present with the tip coursing cephalad. IMPRESSION: 1. No acute radiographic abnormality in the chest. 2. Background findings of chronic lung disease. 3. Right IJ central line tip courses cephalad at its distal tip. Recommend repositioning. PELVIS XRAY-- FINDINGS: There is osteopenia, limiting evaluation for a nondisplaced occult fracture. No fractures appreciated. No dislocations. Left greater trochanter not completely included. There is tubular structure overlying the right hemipelvis. There is a second tubular structure, likely a Emery catheter. IMPRESSION: 1. No acute fractures with limitations due to the osteopenia. If patient cannot bear weight or has continued pain, further imaging recommended. CT HEAD/CERVICAL SPINE-- CT HEAD: The ventricles and sulci are within normal limits. No sulcal effacement or midline shift is identified. No acute intra-axial or extra-axial hemorrhage is detected. There is some mild periventricular hypodensity consistent with chronic microvascular ischemia. Cisterns are patent. Visualized paranasal sinuses demonstrate a mucus retention cyst or polyp in the left maxillary sinus. IMPRESSION: No acute intracranial process is detected. CT CERVICAL SPINE: Alignment of the cervical spine is normal. There is multilevel degenerative disc disease, greatest at the C6-C7 level with disc space narrowing and marginal spurring. There is multilevel facet arthropathy. No fractures are identified. Prevertebral tissues are within normal limits. Odontoid appears intact. IMPRESSION: Cervical spondylosis. No acute bony abnormality is detected. CT CHEST/ABDOMEN/PELVIS-- CT CHEST: No mediastinal hematoma is seen. There is no pleural effusion or hemothorax identified. Parenchymal evaluation does show significant centrilobular emphysematous changes throughout both lungs. No pneumothorax is seen. There is no pulmonary contusion or mass. Bony structures are unremarkable. IMPRESSION: 1. Centrilobular emphysematous changes. No acute feature in the chest is identified. CT ABDOMEN AND PELVIS: The liver is unremarkable. Gallbladder contains small stones. There is no biliary ductal dilatation. The pancreas and spleen are unremarkable. No adrenal mass is detected. There are small nonobstructing calculi in the upper pole of left kidney. There is no hydronephrosis. Aorta is heavily calcified but nonaneurysmal. The bowel loops are normal in caliber. Emery decompresses the urinary bladder. Uterus is unremarkable. There is no free fluid or fluid collection. The bony structures are nonacute. IMPRESSION: No evidence of abdominal or pelvic visceral injury. No acute feature is detected. Reviewed: Reviewed by Me (MAGALIE WILSON DO) Departure Communication (Admissions) Family Conversation 1429--SPOKE WITH PT'S DAUGHTER, SHE LIVES IN [facility]. SHE STATES SHE TALKED TO HER ON Monday, AND PT HAD REPORTED TO HER THAT SHE HAD FALLEN A COUPLE OF TIMES THE DAY BEFORE AND ALSO LAST WEEK. SHE DOES NOT KNOW IF PT HAS AN ADVANCE DIRECTIVE. 1540--PT'S SON, ZULEIKA, IS HERE IN ER, UPDATED HIM ON PT'S CONDITION. HE DOES NOT KNOW IF PT HAS AN ADVANCE DIRECTIVE DISCUSSED AT LENGTH WITH BOTH DAUGHTER AND SON, OF PT'S VERY GRAVE CONDITION, AND LIKELIHOOD THAT SHE MAY NOT SURVIVE THIS, AND THEY BOTH APPEAR TO UNDERSTAND. 1239--CALLED DR. KOVACS, MOMD TEACHER, HE WILL BE DOWN TO SEE PT 1243--CALLED [facility], BASIC INFORMATION OBTAINED FROM THEM 1250--DR. KOVACS HERE. HE ADVISES THAT PT NEEDS CT BEFORE HE CAN TAKE TO AUTOMATION/CONTROLS MANAGER 1327--DR. BEAULIEU HERE IN ER, WILL CALL HER BACK WITH TEST RESULTS, PT IS BEING PREPPED FOR INTUBATION AND CENTRAL LINE AT THIS TIME. 1359--UPDATED DR. KOVACS ON PT'S CONDITION, ADVISES TO REPEAT EKG 1414--DR. KOVACS HERE IN ER AGAIN TO SEE PT. HE IS UNABLE TO TAKE PT TO AUTOMATION/CONTROLS MANAGER AT THIS TIME, DUE TO SEVERE HYPERKALEMIA AND RENAL FAILURE. HAVE DISCUSSED WITH LEGAL CONSULTANT--NO ICU BEDS AVAILABLE HERE 1515--CALLED LEGAL CONSULTANT--NO ICU BEDS AVAILABLE HERE AND NO ANTICIPATED OPEN BEDS ANY TIME TODAY 1524--CALLED [facility]--NO BEDS/ON DIVERSION 1525--CALLED [facility]--NO BEDS IN [place] OR [place]/ON DIVERSION 1525--CALLED [facility]--NO CRITICAL CARE BEDS AVAILABLE/ON DIVERSION 1527--CALLED --NO CRITICAL CARE BEDS AVAILABLE 1529--CALLED [facility]--NO BEDS AVAILABLE/ON COMPLETE DIVERSION 1529--CALLED [facility]--NO BEDS AVAILABLE 1531--CALLED [facility] --BED IS AVAILABLE AT [facility] [place] 1538--[facility] CALLED BACK--RESEARCH IS ABLE TO ACCEPT PT, PAGING FAMILY MEDICINE PHYSICIAN ASSISTANT 1539--STAFF CALLING FOR AIR TRANSPORT 1545--SPOKE WITH DR. AYERS, FAMILY MEDICINE PHYSICIAN ASSISTANT, ACCEPTS PT FOR ADMIT/TRANSFER. NO ADDITIONAL RECOMMENDATIONS AT THIS TIME. 1555--INFORMED DR. KOVACS THAT WE WOULD BE TRANSFERRING PT 1559--INFORMED DR. BEAULIEU THAT WE WOULD BE TRANSFERRING PT. 1635--[facility] HERE FOR TRANSPORT (MAGALIE WILSON DO) Impression Primary Impression: ST elevation myocardial infarction (STEMI) of anterior wall Additional Impressions: Cardiogenic shock Renal failure SEVERE HYPERKALEMIA Acute respiratory failure Multiorgan failure Altered mental status Falls Rhabdomyolysis Hyperglycemia Lactic acidosis Elevated liver enzymes Disposition: XF S[facility]-TRM HOSP Condition: Critical Transfer Transfer Reason: Exceeds level of care Transfer Facility: [place], [place] Method of Transfer: Air (MAGALIE WILSON DO) Departure-Patient Inst. Referrals: [facility] (PCP) Primary Care Physician REDDY DIALLO (Family) Primary Care Physician HENRIETTA PERSAUD APRN Jun 25, 2021 14:17 MAGALIE WILSON DO Jun 27, 2021 11:29
[2021-06-25 14:18] LABS: CARBON DIOXIDE 9 MMOL/L (21-32)
[2021-06-25] MEDS ORDERED: RT-ALBUTEROL SULF 2.5 MG/3 ML PRE-MIX VIAL ONE (14:24)
[2021-06-25 14:27] LABS: ABG OXYGEN SATURATION 100 % (94-100); ABG PCO2 28 MMHG (35-45); ABG PO2 375 MMHG (79-93)
[2021-06-25 14:28] LABS: CREATINE KINASE MB 202.6 NG/ML (<6.6)
[2021-06-25 14:29] LABS: ABG PH 7.07 (7.37-7.43); ABG TCO2 9.2 MMOL/L (21.0-31.0)
[2021-06-25 14:30] LABS: ABG BASE EXCESS -20.4 MMOL/L (-2.5-2.5); ALLENS TEST POSITIVE; INSPIRED O2 100%; PATIENT TEMP 34; VENTILATOR YES
[2021-06-25] MEDS ORDERED: HEParin DRIP 25000 UNIT/500ML 500 ML IV ONE ×2 (14:30→14:50)
[2021-06-25] MEDS ORDERED: ASPIRIN 81 MG CHEW (CHILDREN'S ASA) NG ONE (14:30)
[2021-06-25 14:38] LABS: TSH (THYROID ANALYZER) 0.43 UIU/ML (0.35-4.94)
[2021-06-25] MEDS ORDERED: SODIUM BICARB 8.4% 50 MEQ/50 ML VIAL IV ONE (14:45)
[2021-06-25] MEDS ORDERED: inSUlin (REGULAR) HUMAN 1 UNIT/0.01 ML (CHARGE PER UNIT) ONE (14:49)
[2021-06-25] MEDS ORDERED: ASPIRIN 81 MG CHEW (CHILDREN'S ASA) ONE (14:49)
[2021-06-25] MEDS ORDERED: NS IV 1000 ML 1,000 ML ONE (14:50)
[2021-06-25] MEDS ORDERED: DEXTROSE 50% 50 ML (IMS) SYR ONE (14:50)
[2021-06-25] MEDS ORDERED: SODIUM BICARB 8.4% 50 MEQ/50 ML (ABBOTT) SYR ONE ×2 (14:50→15:13)
[2021-06-25] MEDS ORDERED: SOD POLYSTERENE 15 GM/60 ML (KAYEXALATE) UNIT DOSE ONE (14:50)
--- NOTE | 2021-06-25 14:53 | Diagnostic Imaging Report ---
INDICATION: Fall, pain. EXAMINATION: Pelvis from 06/25/2021. FINDINGS: There is osteopenia, limiting evaluation for a nondisplaced occult fracture. No fractures appreciated. No dislocations. Left greater trochanter not completely included. There is tubular structure overlying the right hemipelvis. There is a second tubular structure, likely a Emery catheter. IMPRESSION: 1. No acute fractures with limitations due to the osteopenia. If patient cannot bear weight or has continued pain, further imaging recommended. Dictated by: Dictated on workstation # [id number]
--- NOTE | 2021-06-25 14:56 | Diagnostic Imaging Report ---
EXAMINATION: Chest 1 view HISTORY: Dyspnea. COMPARISON: CT chest 06/25/2021 FINDINGS: Heart size and pulmonary vasculature are normal. Coarse background interstitial markings throughout the lungs compatible with chronic lung disease or emphysema. No pleural effusion or pneumothorax. The osseous structures are intact. Endotracheal tube is present above the eric. An enteric catheter is present but the tip is not well visualized. A right IJ central line is present with the tip coursing cephalad. IMPRESSION: 1. No acute radiographic abnormality in the chest. 2. Background findings of chronic lung disease. 3. Right IJ central line tip courses cephalad at its distal tip. Recommend repositioning. Dictated by: Dictated on workstation # [id number]
[2021-06-25 15:04] LABS: CREATINE KINASE 11456 U/L (29-168)
[2021-06-25] MEDS ORDERED: NOREPINEPHRINE 8 MG/250 ML 250 ML IV ONE (16:32)
[2021-06-25 16:40] VITALS: BP 79/39
[2021-06-25] MEDS ORDERED: NOREPINEPHRINE 8 MG/250 ML 250 ML IV SCH (16:45)
== END 2021-06-25 17:29 | disposition short-term general hospital (02) ==
LOC: EDUNIT# 12:31 → ER 12:33
DX: I21.3 ST elevation (STEMI) myocardial infarction of unspecified site (principal); R57.0 Cardiogenic shock; I12.9 Hypertensive chronic kidney disease with stage 1 through stage 4 chronic kidney disease, or unspecified chronic kidney disease; N18.9 Chronic kidney disease, unspecified; E11.22 Type 2 diabetes mellitus with diabetic chronic kidney disease; E87.5 Hyperkalemia; R41.82 Altered mental status, unspecified; J96.00 Acute respiratory failure, unspecified whether with hypoxia or hypercapnia; M62.82 Rhabdomyolysis; E87.2 Acidosis; R74.8 Abnormal levels of other serum enzymes; J44.9 Chronic obstructive pulmonary disease, unspecified; I25.2 Old myocardial infarction; E78.00 Pure hypercholesterolemia, unspecified; I25.10 Atherosclerotic heart disease of native coronary artery without angina pectoris; G89.29 Other chronic pain; M54.9 Dorsalgia, unspecified; F41.9 Anxiety disorder, unspecified; F32.9 Major depressive disorder, single episode, unspecified; Z20.822 Contact with and (suspected) exposure to COVID-19; Z87.891 Personal history of nicotine dependence; Z79.891 Long term (current) use of opiate analgesic; Z79.84 Long term (current) use of oral hypoglycemic drugs; Z79.899 Other long term (current) drug therapy; Z79.82 Long term (current) use of aspirin
CPT/HCPCS: 36556; 51702; 70450; 71045; 71250; 72125; 72170; 74176; 80053; 80306; 81000; 82150; 82550; 82553; 82805; 82947; 83605; 83690; 83735; 83874; 83880; 84443; 84484; 85007; 85027; 85379; 85610; 85652; 85730; 86141; 87040; 87636; 93005; 93041; 93306; 94640; 99291; G0480 ×2; 36415; 80320; 80329